=== PATIENT | male | born 1965 | race Caucasian/White ===

== ENCOUNTER → 2017-08-06 | Outpatient (CLI) | payer OTHER ==
[~2017-08-06] MED LIST: ADDERALL 7.5 M7.5 MG PO; ASPIR 8181 MG PO; LEVOTHYROXINE 0.15MG PO; OMEPRAZOLE 20 M20 M1 PO
== END ==
LOC: RAD 13:23
DX: R06.02 Shortness of breath (principal)

== ENCOUNTER → 2017-08-14 | Outpatient (CLI) | payer OTHER ==
--- NOTE | ~2017-08-14 | 2DMMODE ---
[facility] [address] [place] [address] 2 D/M-MODE ECHOCARDIOGRAM Name: HALIE SCHULTZ Room #: [facility]#: [id number] Admission: 08/14/17 Attend Phys: Allan Metcalf Discharge: Date of : 61 Date of Service: 08/14/17 0937 Report #: [id number] THIS REPORT FOR: //name// APPROVED REPORT Study performed: 08/14/2017 08:49:07 EXAM: Comprehensive 2D, Doppler, and color-flow Echocardiogram Patient Location: Echo lab Status: routine BSA: 1.75 HR: 65 bpm BP: 118/70 mmHg Other Information Study Quality: Good Indications Pacemaker SOB 2D Dimensions RVDd: 34.25 mm LVEF(%): 58.15 (>50%) IVSd: 9.25 (7-11mm) LVOT Diam: 19.93 (18-24mm) LVDd: 42.05 mm PWd: 9.56 (7-11mm) Ascending Ao: 31.06 (22-36mm) LVDs: 29.28 (25-40mm) Aortic Root: 27.32 mm IVC: 15.00 mm Tabares's LVEF: 58.15 % Volumes Left Atrial Volume (Systole) Single Plane 4CH: 25.76 mL Single Plane 2CH: 30.01 mL LA ESV Index: 19.00 mL/m2 Aortic Valve AoV Peak Isaac.: 1.38 m/s AO Peak Gr.: 7.57 mmHg LVOT Max P.98 mmHg LVOT Max V: 1.32 m/s SONYA Vmax: 2.99 cm2 Mitral Valve E/A Ratio: 1.1 MV Decel. Time: 246.91 ms [facility] [employer] [address] [place] [address] 2 D/M-MODE ECHOCARDIOGRAM Name: HALIE SCHULTZ [facility] Room #: [facility]#: [id number] Admission: 08/14/17 Attend Phys: Allan Metcalf Discharge: Date of : 61 Date of Service: 08/14/17 0937 Report #: [id number] E Max Isaac.: 0.62 m/s MV A Isaac.: 0.56 m/s MV PHT: 71.60 ms IVRT: 86.51 ms Pulmonary Valve PV Peak Isaac.: 1.04 m/s PV Peak Gr.: 4.30 mmHg Pulmonary Vein P Vein S: 0.59 m/s P Vein A: 0.27 m/s P Vein D: 0.55 m/s P Vein A Dur.: 110.7 msec P Vein S/D Ratio: 1.07 Tricuspid Valve TR Peak Isaac.: 2.20 m/s RAP Estimate: 5.00 mmHg TR Peak Gr.: 19.40 mmHg PA Pressure: 25.00 mmHg Left Ventricle The left ventricle is normal size. There is normal LV segmental wall motion. There is normal left ventricular wall thickness. The left ventricular systolic function is normal. The left ventricular ejection fraction is within the normal range. LVEF is 60%. The left ventricular diastolic function is normal. Right Ventricle The right ventricle is normal size. The right ventricular systolic function is normal. Atria The left atrium size is normal. Right atrium is at the upper limits of normal. Thrombus or vegegation adherent to right atrial pacemaker lead Aortic Valve The aortic valve is normal in structure. No aortic regurgitation is present. There is no aortic valvular stenosis. Mitral Valve The mitral valve is normal in structure. Trace mitral regurgitation. No evidence of mitral valve stenosis. Tricuspid Valve The tricuspid valve is normal in structure. Trace tricuspid regurgitation. PAP is estimated at 25 mmHg. [facility] [address] [place] [address] 2 D/M-MODE ECHOCARDIOGRAM Name: HALIE SCHULTZ Room #: REG [facility]#: [id number] Admission: 08/14/17 Attend Phys: Allan Metcalf Discharge: Date of : 61 Date of Service: 08/14/17 0937 Report #: [id number] Pulmonic Valve The pulmonary valve is normal in structure. Trace pulmonic regurgitation. Great Vessels The aortic root is normal in size. IVC is normal in size and collapses >50% with inspiration. Pericardium There is no pericardial effusion. <Conclusion> The left ventricular systolic function is normal. There is normal LV segmental wall motion. LVEF is 60%. Normal diastolic function Right atrium is at the upper limits of normal. Irregular bordered, mobile thrombus or vegegation adherent to right atrial pacemaker lead The aortic valve is normal in structure. No aortic regurgitation or stenosis The mitral valve is normal in structure. Trace mitral regurgitation. Trace tricuspid regurgitation.Pulmonary artery pressure estimated at 25 mmHg. There is no pericardial effusion. <ELECTRONICALLY SIGNED> By: Jayme Rodriguez MD, FACC 08/14/1737 Jayme Rodriguez MD, FACC /INF
== END ==
LOC: CAT 06:53
DX: J84.10 Pulmonary fibrosis, unspecified (principal); J45.20 Mild intermittent asthma, uncomplicated; G89.29 Other chronic pain; G47.10 Hypersomnia, unspecified; G25.81 Restless legs syndrome; R53.82 Chronic fatigue, unspecified; M54.6 Pain in thoracic spine; Z95.0 Presence of cardiac pacemaker

== ENCOUNTER → 2019-09-09 | Outpatient (CLI) | payer OTHER | LOC: LAB 08:09 | PROVIDERS: ATTEND Neuromusculoskeletal Medicine & OMM | DX: Z03.818 Encounter for observation for suspected exposure to other biological agents ruled out (principal) ==

== ENCOUNTER → 2019-12-07 | Outpatient (CLI) | payer OTHER | LOC: LAB 09:01 | PROVIDERS: ATTEND Neuromusculoskeletal Medicine & OMM | DX: R06.02 Shortness of breath (principal); R50.9 Fever, unspecified; R11.0 Nausea; R52 Pain, unspecified; Z20.828 Contact with and (suspected) exposure to other viral communicable diseases ==